=== PATIENT | male | born 1960 | race Caucasian/White ===

== ENCOUNTER 2016-06-22 00:14 | Emergency (ER) | payer MEDICAID ==
[~2016-06-22] VITALS: Ht 177.8 cm; Wt 173.7 kg
[2016-06-22 00:30] VITALS: BP 163/119
--- NOTE | 2016-06-22 00:50 | PHYS DOC ---
Past Medical History Past Medical History: A-Fib, COPD, Diabetes-Type II, Hypertension Additional Past Medical Histor: SLEEP APNEA, KIDNEY DISEASE, FLESH EATING BACTERIA Past Surgical History: Other Additional Past Surgical Histo: STENTS X2, 10 SKIN GRAFTS, PENIS RECONSTRUCTION , REMOVAL OF SCROTUM Alcohol Use: None Drug Use: None Adult General Chief Complaint Chief Complaint: back pain HPI HPI 55-year-old male presenting to the emergency department today after leaning back on a lawn chair and falling on his back. He denies head trauma or loss of consciousness. He describes the pain being in the middle of his back a cramping sensation nonradiating moderate to severe and worse with walking. He took ibuprofen with mild relief. He denies any numbness weakness or tingling. Review of systems is negative for chest pain abdominal pain shortness of breath. He denies numbness weakness or tingling. All other review of systems is negative unless otherwise noted in history of present illness. Review of Systems Review of Systems SEE ABOVE. Current Medications Current Medications Current Medications Medications (Trade) Dose Ordered Sig/Alma Start Time Stop Time Status Last Admin Dose Admin Cyclobenzaprine HCl (Flexeril) 10 mg 1X ONCE 06/22/16 01:15 06/22/16 01:16 DC 06/22/16 01:14 10 MG Hydromorphone HCl (Dilaudid) 1 mg 1X ONCE 06/22/16 01:15 06/22/16 01:16 DC 06/22/16 01:14 1 MG Allergies Allergies Allergies Coded Allergies Type Severity Reaction Last Updated Verified No Known Drug Allergies 06/22/16 No Physical Exam Physical Exam Constitutional: Well developed, well nourished, no acute distress, non-toxic appearance. HENT: Normocephalic, atraumatic, bilateral external ears normal, oropharynx moist, no oral exudates, nose normal. [] Eyes: PERRLA, EOMI, conjunctiva normal, no discharge. Neck: Normal range of motion, no tenderness, supple, no stridor. [] Cardiovascular:Heart rate regular rhythm, no murmur Lungs & Thorax: Bilateral breath sounds clear to auscultation [] Abdomen: Bowel sounds normal, soft, no tenderness, no masses, no pulsatile masses. Skin: Warm, dry, no erythema, no rash. [] Back: No tenderness, no CVA tenderness. No midline tenderness of the cervical thoracic or lumbar region. No ecchymosis lacerations or abrasions present of the skin. No step-offs. Extremities: No tenderness, no cyanosis, no clubbing, ROM intact, no edema. Neurologic: Alert and oriented X 3, normal motor function, normal sensory function, no focal deficits noted. Psychologic: Affect normal, judgement normal, mood normal. [] Current Patient Data Vital Signs Vital Signs Date Time Temp Pulse Resp B/P Pulse Ox O2 Delivery O2 Flow Rate FiO2 06/22/16 00:30 98.0 86 24 163/119 96 Room Air 98.0 EKG EKG [] Radiology/Procedures Radiology/Procedures [] Course & Med Decision Making Course & Med Decision Making Pertinent Labs and Imaging studies reviewed. (See chart for details) [] 55-year-old male presenting to the emergency department after falling on his back while sitting in a lawn chair. On examination, no midline tenderness. No step-offs abrasions lacerations present of the back. The patient was subsequently discharged home after being given intramuscular hydromorphone along with oral Flexeril. Follow up with PCP over 2-3 days. Dragon Disclaimer Dragon Disclaimer This electronic medical record was generated, in whole or in part, using a voice recognition dictation system. Departure Departure Impression: Primary Impression: Back pain Disposition: 01 HOME, SELF-CARE Condition: STABLE Referrals: LIV WARREN MD Patient Instructions: Back Pain, Adult Additional Instructions: Thank you for allowing us to participate in your care today. Followup with your primary care physician in 3 days if your symptoms do not improve. If you do not have a primary care provider you can ask for a list of our primary care providers. Return to the emergency department you have any new or concerning findings. This should be evaluated by the primary care physician and any necessary consulting services for continued management within a few days after discharge. Return to emergency room if you have any new or concerning symptoms including but not limited to fever, chills, nausea, vomiting, intractable pain, any new rashes, chest pain, shortness of air, uncontrolled bleeding, difficulty breathing, and/or vision loss. You may have been prescribed medication that can change in your level of thinking and ability to operate machinery. These medications include hydrocodone and Ativan. Also, Benadryl has been known to do this as well. Be sure to check with your pharmacist and ask if the medications you've prescribed can affect your level of consciousness. I recommend not operating heavy machinery or driving while on medication such as these. Scripts Hydrocodone Bit/Acetaminophen (Hydrocodone-Apap 5-325 )1 Each Tablet2 Tab PO PRN Q6HRS PRN PAIN #30 TAB Be careful as this medication may cause you to be drowsy or tired. Do not drive on this medication. Prov:DAVID GARCÍA MD 06/22/16 DAVID GARCÍA MD Jun 22, 2016 00:50
[2016-06-22] MEDS ORDERED: HYDR-2666 PO (00:56)
[2016-06-22] MEDS ORDERED: CYCLOBENZAPRINE 10 MG TABLET. PO ONE (01:15)
[2016-06-22] MEDS ORDERED: HYDROMORPHONE 2 MG/ML VIAL. IM ONE (01:15)
== END 2016-06-22 01:25 | disposition home or self-care (01) ==
LOC: ER 00:14
DX: M54.9 Dorsalgia, unspecified (principal); J44.9 Chronic obstructive pulmonary disease, unspecified; G47.30 Sleep apnea, unspecified; E11.9 Type 2 diabetes mellitus without complications; I10 Essential (primary) hypertension; W19.XXXA Unspecified fall, initial encounter; Y93.89 Activity, other specified; Y92.89 Other specified places as the place of occurrence of the external cause; Y99.8 Other external cause status
CPT/HCPCS: 96372; 99284; J1170; 99283-25